=== PATIENT | male | born 1985 | race Caucasian/White ===

== ENCOUNTER 2016-05-29 13:41 | Emergency (ER) | payer SELFPAY ==
[~2016-05-29] VITALS: Ht 188 cm; Wt 82.0 kg
[2016-05-29 13:59] VITALS: BP 119/81; PULSE 87; RESP 16; TEMP 100; O2SAT 95
[2016-05-29] MEDS ORDERED: BENZ100 PO (14:29)
[2016-05-29] MEDS ORDERED: MAGICPED SWISH-SPIT (14:29)
[2016-05-29] MEDS ORDERED: ACETAMINOPHEN 500 MG CPLT PO ONE (14:30)
--- NOTE | 2016-05-29 14:37 | PD ---
HPI Chief Complaint: Cold / Flu Symptoms Time Seen by Provider: 14:33 Travel History International Travel<30 days: No Contact w/Intl Traveler<30days: No Traveled to known affect area: No History of Present Illness HPI Patient is a 30-year-old male with chief complaint of ENT/URI symptoms. Present for 2 days. He reports nasal congestion, rhinorrhea, postnasal drip, sore dry throat, dry cough, myalgias and headaches for 2 days. MAXIMUM TEMPERATURE 103.0 Fahrenheit. Has responded to ibuprofen which he took 3-4 hours prior to arrival. He denies any abdominal pain, nausea or diarrhea but states he had some posttussive emesis last evening. Denies chest pain, dyspnea and wheezing. No history of asthma. He denies neck pain and stiffness. Did not receive influenza vaccine this year. He is otherwise healthy and has no other complaints at this time. [facility] Past Medical History Medical History: Denies Significant Hx Past Surgical History Surgical History: No Previous Surgery Social History Alcohol Use: Yes (OCCASIONALLY) Tobacco Use: Yes (1 PPD) Substance Use: Yes Allergies-Medications (Allergen,Severity, Reaction): Coded Allergies: No Known Allergies (Verified , 05/29/16) Reported Meds & Prescriptions Reported Meds & Active Scripts Active Tessalon Perles (Benzonatate) 100 Mg Cap 100-200 Mg PO TID PRN Magic Mouthwash Pediatric/Adult Liq (Lidocaine/Diphenhydr/Alum/Mg/Simeth) 60 Ml Susp 5-10 Ml SWISH-SPIT ACHS PRN Please makes 40 mL each: 2% viscous lidocaine, liquid diphenhydramine and Maalox liquid Review of Systems Except as stated in HPI: all other systems reviewed are Neg Physical Exam Narrative GENERAL: Well-developed and well-nourished adult male in no acute distress. SKIN: Warm and dry. Good turgor without tenting. HEAD: Normocephalic and atraumatic. EYES: PERRL bilaterally, 5mm. EOMI bilaterally. No injection or icterus present. No proptosis. Lids without edema or erythema. ENT: Bilateral ear canals are non-edematous/non-erythematous without otorrhea. Bilateral TMs have intact landmarks and without distortion, perforation, air- fluid level or erythema. Nasal mucosa erythematous and edematous with scant yellow discharge, septum intact and midline. Buccal mucosa pink and moist. Oropharynx free of erythema, tonsillar hypertrophy, masses, swelling, asymmetry and exudates. Uvula midline and airway patent. NECK: Supple, no meningeal signs. Trachea midline, no JVD. No cervical or facial lymphadenopathy. CARDIOVASCULAR: Regular rate and rhythm without murmurs, rubs, clicks or gallops. Radial and posterior tibial pulses 2+ bilaterally. No pedal edema. RESPIRATORY: Clear to auscultation bilaterally with symmetrical rise and fall, no distress or use of accessory muscles. GASTROINTESTINAL: Non-tender, non-distended. Normal bowel sounds all 4 quadrants. No masses or organomegaly present. MUSCULOSKELETAL: No gait disturbances. Patient freely moving all four extremities spontaneously. Extremities without clubbing, cyanosis, or edema. No obvious deformities. NEUROLOGIC: CN II-XII grossly intact. Awake and alert. Motor grossly within normal limits. Normal speech. PSYCHIATRIC: Appropriate mood and affect; insight and judgment normal. Data Data Last Documented VS Vital Signs Date Time Temp Pulse Resp B/P Pulse Ox O2 Delivery O2 Flow Rate FiO2 05/29/16 13:59 100.0 87 16 119/81 95 Orders Acetaminophen (Tylenol) (05/29/16 14:30) MDM Medical Decision Making Medical Screen Exam Complete: Yes Emergency Medical Condition: Yes Differential Diagnosis Influenza versus viral syndrome versus bronchitis Narrative Course Patient is an otherwise healthy 30-year-old male with a 2 day history of symptoms and physical consistent with viral syndrome, likely influenza. The patient is concerned over the cost of Tamiflu and cannot fill this so we deferred influenza testing. He declines the Tamiflu prescription. Patient was given a work note temperature Magic mouthwash and Tessalon Perles to help with his symptoms. 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 He has evidence of good volume status on exam and is [id number].See discharge paperwork for further instructions. The plan was discussed with the patient who acknowledged their understanding and agreement. Reinforced the follow-up with primary care is critically important. Patient instructed on emergent conditions that should prompt return to ED. Diagnosis Primary Impression: Acute viral syndrome Patient Instructions: General Instructions, Viral Syndrome (ED) Departure Forms: Tests/Procedures, Work Release Enter return to work date: Jun 01, 2016 Additional Instructions: Take medication as prescribed OTC Mucinex, cough suppressants, and decongestants as needed OTC Tylenol or Ibuprofen for fever and discomfort Drink lots of fluid to help clear mucous/drainage and stay hydrated Follow up with PCP in 2 days Return to the ED for any acute worsening of symptoms Med/Other Pt SpecificInfo: Prescription(s) given Scripts Benzonatate (Tessalon Perles)100 Mg [id number] Mg PO TID PRN (COUGH) #20 CAP Prov:Shyla Light MD 05/29/16 [id number]-Vhmcnwzjk-Jdi-Alum-Simeth Liq (Magic Mouthwash Pediatric/Adult Liq)60 Ml Susp5-10 Ml SWISH-SPIT ACHS PRN (SORE THROAT) #120 ML Please makes 40 mL each: 2% viscous lidocaine, liquid diphenhydramine and Maalox liquid Prov:Shyla Light MD 05/29/16 Disposition: 01 DISCHARGE HOME Condition: Stable Saroj Carlton III May 29, 2016 14:37
== END 2016-05-29 15:05 | disposition home or self-care (01) ==
LOC: PHEFT 13:41
DX: B34.9 Viral infection, unspecified (principal); J34.89 Other specified disorders of nose and nasal sinuses; R09.82 Postnasal drip; R07.0 Pain in throat; R05 Cough; M79.1 Myalgia; R51 Headache; R50.9 Fever, unspecified; F17.200 Nicotine dependence, unspecified, uncomplicated
CPT/HCPCS: 99283

== ENCOUNTER 2017-09-29 13:03 | Emergency (ER) | payer SELFPAY ==
[~2017-09-29 13:03] MED LIST: BENZ100 PO; MAGICPED SWISH-SPIT
[2017-09-29 13:07] VITALS: BP 134/73; PULSE 119; RESP 20; TEMP 99; O2SAT 98
[2017-09-29] MEDS ORDERED: CEPH-460 PO (13:45)
[2017-09-29] MEDS ORDERED: BACT800T5 PO (13:45)
--- NOTE | 2017-09-29 13:53 | PD ---
HPI Chief Complaint: Skin Problem Time Seen by Provider: 13:40 Travel History International Travel<30 days: No Contact w/Intl Traveler<30days: No Traveled to known affect area: No History of Present Illness HPI 32-year-old male presents emergency department for evaluation of left lower extremity swelling that started 3 days ago. Says that he may been bit by something and the leg has become more swollen and red so decided to come to emergency department to department today for evaluation. Denies pain to the area. Says he has been able to get some white fluid out of a lesion in the center of the redness. Says he was recently released from long term and believes that he may have picked up an infection there. He is unsure if the spider bit him or if it is an ingrown hair. Denies numbness or tingling or any other complaints today regarding this. He denies fevers or chills. His tetanus was within the last 5 years. PFSH Past Medical History Diminished Hearing: No Tetanus Vaccination: < 5 Years Influenza Vaccination: No Social History Alcohol Use: No (DENIES) Tobacco Use: No Substance Use: Yes Allergies-Medications (Allergen,Severity, Reaction): Coded Allergies: No Known Allergies (Verified Adverse Reaction, Unknown, 09/29/17) Reported Meds & Prescriptions Reported Meds & Active Scripts Active Bactrim DS (Sulfamethoxazole-Trimethoprim) 800-160 Mg Tab 1 Tab PO BID Keflex (Cephalexin) 500 Mg Cap 500 Mg PO Q8H 10 Days Review of Systems Except as stated in HPI: all other systems reviewed are Neg Physical Exam Narrative GENERAL: Well-nourished, well-developed patient, slightly anxious. SKIN: Focused skin assessment warm/dry. No rashes or lesions. LLE- mid calf area of central puncta with surrounding erythema. edema noted to lower extremity. neurovascularly intact lower extremity. HEAD: Normocephalic. Atraumatic. EYES: No scleral icterus. No injection or drainage. PERRLA, EOMI THROAT: No pharyngeal injection, exudates, or tonsillar hypertrophy. Airway is patent. NECK: Supple, trachea midline. No JVD or lymphadenopathy. No meningismus. MUSCULOSKELETAL: No cyanosis, or edema. BACK: Nontender without obvious deformity. No CVA tenderness. Data Data Last Documented VS Vital Signs Date Time Temp Pulse Resp B/P (MAP) Pulse Ox O2 Delivery O2 Flow Rate FiO2 09/29/17 13:07 99.0 119 20 134/73 (93) 98 Orders Orders Ed Discharge Order (09/29/17 13:53) MDM Medical Decision Making Medical Screen Exam Complete: Yes Emergency Medical Condition: Yes Differential Diagnosis Left lower extremity cellulitis, erysipelas, abscess Narrative Course 32-year-old male presents emergency department for evaluation of left lower extremity swelling that started 3 days ago. Says that he may been bit by something and the leg has become more swollen and red so decided to come to emergency department to department today for evaluation. Denies pain to the area. Says he has been able to get some white fluid out of a lesion in the center of the redness. Says he was recently released from long term and believes that he may have picked up an infection there. He is unsure if the spider bit him or if it is an ingrown hair. Denies numbness or tingling or any other complaints today regarding this. He denies fevers or chills. His tetanus was within the last 5 years. Vital signs demonstrate temperature 99.0, HR 119. Note that patient appeared to be somewhat anxious but nontoxic. The erythema about the left calf is focused around the lesion. There is no lymph angiopathic spread. There is mild edema distally. Neurovascular intact left lower extremity. Because the patient is young and healthy, I do not believe labs are necessary. I believe that if he does not take his antibiotics that he may worsen. I explained the importance of starting these medications today and he understands. I believe this may take 5-7 days to improve. He is discharged with Bactrim and Keflex. He should return if his symptoms persist or worsen. Diagnosis Primary Impression: Cellulitis Qualified Codes: L03.116 - Cellulitis of left lower limb Referrals: [facility] Additional Instructions: Use warm compresses directly over the area to assist drainage for 1-2 days. He may use cool compresses for the swelling otherwise. Recommend elevating the leg to reduce swelling. He may use Tylenol or Motrin per package instructions for pain. Take antibiotics as prescribed to reduce complications of this infection. Scripts Sulfamethoxazole-Trimethoprim (Bactrim DS) 800-160 Mg Tab 1 TAB PO BID for Infection, #20 TAB 0 Refills Prov: Arely Burks MD 09/29/17 Cephalexin (Keflex) 500 Mg Cap 500 MG PO Q8H for Infection for 10 Days, #30 CAP 0 Refills Prov: Arely Burks MD 09/29/17 Disposition: 01 DISCHARGE HOME Condition: Stable Maile Mcneal Sep 29, 2017 13:53
== END 2017-09-29 13:59 | disposition home or self-care (01) ==
LOC: PHEFT 13:03
DX: L03.116 Cellulitis of left lower limb (principal)
CPT/HCPCS: 99283